=== PATIENT | male | born 1955 | race Two or more races ===

== ENCOUNTER 2018-01-15 12:17 | Day surgery (SDC) | payer BC ==
[~2018-01-15] VITALS: Ht 177.8 cm; Wt 63.1 kg
[~2018-01-15 12:17] MED LIST: HYDR-3241 PO; PANT40TA5 PO; SUCR1ORA5 PO
[2018-01-15 12:51] VITALS: BP 128/93
[2018-01-15] MEDS ORDERED: LACTATED RINGERS 1,000 ML IV SCH (13:00)
[2018-01-15] MEDS ORDERED: LIDOCAINE-MPF 1%, 2ML ONE (13:15)
[2018-01-15] MEDS ORDERED: LIDOCAINE-MPF 1%, 2ML INFIL ONE (13:30)
[2018-01-15] MEDS ORDERED: MIDAZOLAM 1 MG/ML, 2ML ONE (13:33)
[2018-01-15] MEDS ORDERED: FENTANYL PF 100 MCG/2ML ONE (13:33)
[2018-01-15] MEDS ORDERED: MIDAZOLAM 1 MG/ML, 2ML IV PRN (14:00)
[2018-01-15] MEDS ORDERED: PROMETHAZINE 25 MG/ML, 1ML IV PRN (14:00)
[2018-01-15] MEDS ORDERED: MEPERIDINE/PF 25MG/0.5ML IVPush PRN (14:00)
[2018-01-15] MEDS ORDERED: HYDROmorphone 1 MG/ML, 1ML IV PRN (14:00)
[2018-01-15] MEDS ORDERED: ONDANSETRON 2MG/ML, 2ML IV PRN (14:00)
[2018-01-15] MEDS ORDERED: LABETALOL 5MG/ML, 20ML IV PRN (14:00)
[2018-01-15] MEDS ORDERED: FENTANYL PF 100 MCG/2ML IV PRN (14:00)
[2018-01-15] MEDS ORDERED: OXYcodone 5 MG/5 ML ORAL.SOL UDC PO PRN (14:00)
[2018-01-15] MEDS ORDERED: ALBUTEROL/IPRATROPIUM 2.5MG/0.5MG, 3 ML NPPB PRN (14:00)
[2018-01-15] MEDS ORDERED: PROPOFOL 10 MG/ML, 20ML ONE ×2 (14:02→16:00)
== END 2018-01-15 16:20 ==
LOC: OUT 12:17
PROVIDERS: ATTEND Internal Medicine Gastroenterology
DX: C15.9 Malignant neoplasm of esophagus, unspecified (principal); K21.9 Gastro-esophageal reflux disease without esophagitis; Z88.8 Allergy status to other drugs, medicaments and biological substances
CPT/HCPCS: 43237; J2250; J2704; J3010; J3490; J7120